=== PATIENT | male | born 1955 | race Caucasian/White ===

== ENCOUNTER → 2024-09-26 11:16 | Outpatient (REF) | payer OTHER, SELFPAY | LOC: REG 11:16 | PROVIDERS: ATTENDING PHYSICIAN Family Medicine | DX: R05.1 Acute cough (principal) | CPT/HCPCS: 71046 ==

== ENCOUNTER → 2024-09-27 10:07 | Outpatient (REF) | payer OTHER, SELFPAY | LOC: HWRCS 10:07 | PROVIDERS: ATTENDING PHYSICIAN Family Medicine | DX: R01.1 Cardiac murmur, unspecified (principal) | CPT/HCPCS: 93306 ==

== ENCOUNTER → 2024-12-24 08:23 | Outpatient (REF) | payer OTHER, SELFPAY | LOC: HWRCS 08:23 | PROVIDERS: ATTENDING PHYSICIAN Internal Medicine Cardiovascular Disease; FAMILY PHYSICIAN Family Medicine | DX: R06.09 Other forms of dyspnea (principal) | CPT/HCPCS: 78452; 93017; A9500; J2785 ==